=== PATIENT | female | born 1985 | race Hispanic/Latino ===

== ENCOUNTER 2023-01-01 19:05 | Emergency (ER) | payer MEDICAID, OTHER ==
[~2023-01-01] VITALS: Ht 149.9 cm; Wt 64.6 kg
[~2023-01-01 19:05] MED LIST: PREN1TAB80 PO
[2023-01-01 19:06] VITALS: BP 145/104; PULSE 58; RESP 20
[2023-01-01 19:26] LABS: APPEARANCE,URINE CLOUDY (CLEAR); BILIRUBIN,URINE NEGATIVE (NEGATIVE); COLOR,URINE DARK-YELLOW (YELLOW); GLUCOSE, URINE (UA) NEGATIVE (NEGATIVE); KETONES,URINE NEGATIVE (NEGATIVE); LEUKOCYTE ESTERASE ,URINE 500 Leu/uL (NEGATIVE); NITRATE,URINE 1+ (NEGATIVE); OCCULT BLOOD,URINE LARGE (NEGATIVE); PH,URINE 5.5 (5.0-8.0); PROTEIN,URINE 10 mg/dL (NEGATIVE); UROBILINOGEN,URINE 0.2 mg/dL (0.2-1.0)
[2023-01-01 19:29] LABS: ADD UA MICROSCOPIC YES
[2023-01-01 19:33] LABS: HCG,QUALITATIVE URINE NEGATIVE (NEGATIVE)
[2023-01-01 19:36] LABS: BACTERIA,URINE FEW /HPF (None Seen); MUCUS,URINE RARE LPF (None Seen); SQUAMOUS EPITHELIAL CELL,UR RARE /HPF (0-2); UNCLASSIFIED CRYSTAL 1 /HPF (None Seen); WBC,URINE 51-100 /HPF (0-1); YEAST,URINE BUDDING FEW /HPF (None Seen)
[2023-01-01] MEDS ORDERED: CEPH500B PO (19:58)
[2023-01-01] MEDS ORDERED: CEFTRIAXONE 1G VIAL IM ONE (20:00)
== END 2023-01-01 20:40 | disposition home or self-care (01) ==
LOC: EDH 19:05
DX: N39.0 Urinary tract infection, site not specified (principal); Z79.899 Other long term (current) drug therapy; Z98.890 Other specified postprocedural states
CPT/HCPCS: 99283; 87077; 87088; 87186; 81001; 81025; 96372; J0696

== ENCOUNTER 2023-01-02 02:04 | Emergency (ER) | payer OTHER ==
[~2023-01-02] VITALS: Ht 149.9 cm; Wt 64.4 kg
[~2023-01-02 02:04] MED LIST changes: +CEPH500B PO
[2023-01-02 02:38] LABS: BASOPHILS # (AUTO) 0.02 K/uL (0.00-0.20); BASOPHILS % (AUTO) 0.2 % (0.0-5.0); EOSINOPHILS # (AUTO) 0.06 K/uL (0.00-0.70); EOSINOPHILS % (AUTO) 0.5 % (0.0-8.0); HEMATOCRIT 35.6 % (36-48); IMMATURE GRANULOCYTE ABSOLUTE 0.04 K/uL (0-1); MEAN CORPUSCULAR HEMOGLOBIN 23.9 pg (27.0-33.0); MEAN CORPUSCULAR HGB CONC 31.7 g/dL (32.0-36.0); MEAN CORPUSCULAR VOLUME 75.4 fL (79-99); MONOCYTES # (AUTO) 0.7 K/uL (0.1-1.0); MONOCYTES % (AUTO) 5.3 % (3.0-13.0); NEUTROPHILS # (AUTO) 11.2 K/uL (1.8-7.7); NEUTROPHILS % (AUTO) 85.7 % (40.0-77.0); PLATELET COUNT (AUTO) 292 K/uL (130-400); RED BLOOD CELL COUNT(AUTO) 4.72 MIL/uL (4.00-5.50); RED CELL DISTRIBUTION WIDTH 15.8 % (11.0-15.5); WHITE BLOOD COUNT (AUTO) 13.1 K/uL (4.8-10.8)
[2023-01-02 03:00] LABS: B-TYPE NATRIURETIC PEPTIDE 6 pg/mL (0-100)
[2023-01-02 03:01] LABS: WBC MORPHOLOGY CONSISTENT W/DIFF
[2023-01-02] MEDS ORDERED: KETOROLAC 30MG VIAL (30MG/ML) IVP ONE (03:30)
[2023-01-02] MEDS ORDERED: POTASSIUM BICARB/CIT AC 25 MEQ TABLET.EFF PO ONE (03:30)
[2023-01-02 05:38] VITALS: BP 128/75; PULSE 88; RESP 20; O2SAT 99
== END 2023-01-02 05:42 | disposition home or self-care (01) ==
LOC: EDH 02:04
DX: R07.89 Other chest pain (principal); M54.9 Dorsalgia, unspecified; N39.0 Urinary tract infection, site not specified; Z79.899 Other long term (current) drug therapy; Z98.890 Other specified postprocedural states
CPT/HCPCS: 99285; 96374; 71045; 84484; 83880; 85025; 36415; 93005; J1885